=== PATIENT | female | born 1965 | race Caucasian/White ===

== ENCOUNTER 2019-12-09 14:08 | Day surgery (SDC) | payer BC ==
[2019-12-04 13:41] LABS: BASOPHILS % (AUTO) 0.6 % (0-1); EOSINOPHILS # (AUTO) 0.1 X10'3 (0-0.9); EOSINOPHILS % (AUTO) 1.3 % (0-6); LYMPHOCYTES # (AUTO) 1.4 X10'3 (1.1-4.8); LYMPHOCYTES % (AUTO) 28.8 % (21-51); MEAN CORPUSCULAR HEMOGLOBIN 29.3 PG (27.0-31.0); MEAN CORPUSCULAR HGB CONC 33.6 g/dL (33.0-36.5); MEAN CORPUSCULAR VOLUME 87.4 FL (78-98); MONOCYTES # (AUTO) 0.2 X10'3 (0-0.9); NEUTROPHILS # (AUTO) 3.1 X10'3 (1.8-7.7); NEUTROPHILS % (AUTO) 64.3 % (42-75); PRE OP HEMATOCRIT 43.5 % (35.0-45.0); PRE OP HEMOGLOBIN 14.6 g/dL (12.0-16.0); PRE OP PLATELET COUNT 306 X10'3 (140-440); RED BLOOD COUNT 4.98 X10'6 (4.20-5.60)
[2019-12-04 13:48] LABS: CLARITY,URINE CLEAR (Clear); COLOR,URINE STRAW (Yellow); GLUCOSE, URINE NEGATIVE (Neg); KETONES,URINE NEGATIVE (Neg); LEUKOCYTE ESTERASE ,URINE NEGATIVE (Neg); NITRITES, URINE NEGATIVE (Neg); OCCULT BLOOD,URINE MODERATE (Neg); PROTEIN,URINE NEGATIVE (Neg); UA COLLECTION TYPE CLN CATCH MIDSTREAM; UROBILINOGEN,URINE 0.2 E.U/dL (0.2-1.0)
[2019-12-04 13:55] LABS: SQUAMOUS EPITHELIAL CELL,UR FEW /LPF (FEW)
[2019-12-04 13:56] LABS: BACTERIA,URINE FEW /HPF (Neg); WBC,URINE 0-4 /HPF (0-4)
[2019-12-04 13:57] LABS: PRE OP PROTIME 9.9 SECONDS (9.0-12.0)
[2019-12-04 13:59] LABS: ALBUMIN 4.2 G/DL (3.4-5.0); ALBUMIN/GLOBULIN RATIO 1.1 (1.1-1.5); ALKALINE PHOSPHATASE 99 IU/L (46-116); BLOOD UREA NITROGEN 12 MG/DL (7-18); BUN/CREATININE RATIO 15.4 (6.6-38.0); CALCIUM 9.5 MG/DL (8.5-10.1); CHLORIDE 105 MMOL/L (99-107); CREATININE 0.78 MG/DL (0.40-0.90); PRE OP ALT 26 U/L (30-65); PRE OP ANION GAP 5 (8-16); PRE OP AST 19 U/L (10-37); PRE OP BILIRUB, TOTAL 0.4 MG/DL (0.0-1.0); PRE OP GLUCOSE 95 MG/DL (70-104); PRE OP SODIUM 141 MMOL/L (135-145); TOTAL CARBON DIOXIDE 30.9 MMOL/L (24-32); TOTAL PROTEIN 7.9 G/DL (6.4-8.2); eGFR 78 ML/MIN
[~2019-12-09] VITALS: Ht 172.7 cm; Wt 72.3 kg
[2019-12-09] VITALS (22 sets, daily range): BP systolic 91–138; BP diastolic 52–99
[~2019-12-09 14:08] MED LIST: ALPR-624 PO; BUPIVAcaine/PF 2.5 mg/ml (0.25%) 30ml vial ONE; BUPR300T53 PO; CHOL400T14 PO; CYAN100019 PO; CYCL-1 PO; GENTAMICIN IV ONE; LACT1CAP65 PO; LAMO150T2 PO; LIDOcaine 1% 30ml preserv. free vial ONE; LIDOcaine 2% (20mg/ml) 5ml vial ONE; NORMAL SALINE IV ONE; TEST2.5G5 TD; acetaminophen 1,000mg/100ml IV 100 ML IV ONE; ceFAZolin 1000mg inj ONE; clindamycin phosphate 40gm vag cream ONE; clindamycin-Cleocin 900mg/D5W 50 ML IV ONE; dexamethasone sod phosphate 10mg/ml inj ONE; famotidine 20mg tablet PO ONE; fentaNYL /PF 50mcg/ml 5ml ampule ONE; meperidine/PF 25mg/ml syringe IV PRN; midazolam 2 mg/2 ml injection ONE; morphine 10mg/ml inj. ONE; morphine 4 MG/ML inj SYRINge IV PRN; ondansetron/PF 4mg/2ml inj IV PRN; ondansetron/PF 4mg/2ml inj ONE; proCHLORperazine 10 MG/2 ml inj IV PRN; propofol inj 20 ML IV ONE; ringers solution, lacted 1,000 ML IV SCH; rocuronium 10mg/ml inj IV ONE; sevoflurane 250ml liquid IH ONE; vasoPRESSIN 20 units/ml inj. ONE
[2019-12-09] MEDS: ringers solution, lacted 1,000 ML IV SCH ×2 (14:08→21:41)
[2019-12-09] MEDS ORDERED: temazepam 15mg capsule PO PRN (14:10)
[2019-12-09] MEDS ORDERED: bisacodyl 10mg suppository rectal RC PRN (14:10)
[2019-12-09] MEDS ORDERED: diphenhydrAMINE 50 mg/ml inj IV PRN (14:10)
[2019-12-09] MEDS ORDERED: CADD PCA waste documentation MC PRN (14:10)
[2019-12-09] MEDS ORDERED: HYDROcodone/acetaminophen 5mg/325mg tablet PO PRN ×2 (14:10)
[2019-12-09] MEDS ORDERED: normal saline 500ml IV soln 500 ML IV PRN (14:10)
[2019-12-09] MEDS ORDERED: naloxone 0.4 mg/ml inj IV PRN (14:10)
[2019-12-09] MEDS ORDERED: ketorolac trometh. 30mg/ml inj. ONE (14:14)
--- NOTE | 2019-12-09 14:26 | NUR ---
Received from OR via BED, accompanied by Anesthesiologist DR GAUTHIER and report given by Anesthesiologist. PT VERY DROWSY, NO S/S OF DISTRESS/DISCOMFORT, ABDOMEN W/4 LAP SITES W/BANDAIDS, STERI-STRIPS OVER PUBIS INTACT, CALL CATHETER TO GRAVITY DRAINAGE W/FLUORSCEIN BRIGHT YELLOW URINE. Addendum: 12/09/19 at 1512 by Lee Ann Leal RN Amended: Links added.
[2019-12-09] MEDS: meperidine/PF 25mg/ml syringe IV PRN ×2 (15:07→15:18)
[2019-12-09] MEDS: HYDROmorphone/NS 1 mg/ml CADD 50 ML IV SCH ×5 (16:11→23:00)
--- NOTE | 2019-12-09 16:24 | NUR ---
Received report from Lee Ann COLON, awaiting patients arrival on unit
--- NOTE | 2019-12-09 16:26 | NUR ---
Report called to receiving nurse. Transferred via BED, 1 BAG OF PERSONAL Belongings SENT W/PT TO ROOM 350A, BLL, CALL LIGHT GIVEN, SIDE RAILS UP X 2, FAMILY AT BEDSIDE, RECEIVING RN NOTIFIED OF PTS ARRIVAL. Special Issues communicated to receiving nurse. YES. Addendum: 12/09/19 at 1646 by Lee Ann Leal RN Amended: Links added.
[2019-12-09] MEDS ORDERED: ALPRAZolam 0.5mg tablet PO PRN (16:50)
[2019-12-09] MEDS: simethicone 80mg chew tab PO SCH (17:14)
--- NOTE | 2019-12-09 18:30 | NUR ---
Patient in room [facility] 350. I have received report from JASMYNE COLON and had the opportunity to ask questions and assume patient care. Addendum: 12/09/19 at 1936 by Kelsey Clakr RN Amended: Links added.
--- NOTE | 2019-12-09 19:05 | NUR ---
All cares given Dilaudud cadd in place, pain 12/09. lapsites CDI. VSS. parents in room. Report given to sarah COLON
--- NOTE | 2019-12-09 20:31 | NUR ---
Dr Landers called to check on his pt aware she haSNOT WALKED HAS A LOW BP 93/51 ANDF HER VITAL TRENDS HAVE BEEN THERE THAT PT STATES SHE RUNS LOW NORMALLY AND IS SLEEPY RIGHT NOW BUT WILL WALK LATER AND LAP SITES WITHOUT DRAINAGE AND PERIPAD SCANT. NO NEW ORDERS TAKEN.
[2019-12-09] MEDS: buPROPion SR 150mg tablet PO SCH (22:04)
[2019-12-09] MEDS: ondansetron/PF 4mg/2ml inj IV PRN (22:18)
--- NOTE | 2019-12-09 22:28 | NUR ---
pt went to get up after using cadd became nauseated sbp now 113, medicated for the nausea and will come back after pt feels better.
--- NOTE | 2019-12-09 23:16 | NUR ---
POST OP VITALS MONITORED BY rN'S ANDB DOCUMENTED BY ROMMEL AND RN. Addendum: 12/09/19 at 2317 by Kelsey Clark RN Amended: Links added.
[2019-12-10] VITALS: BP 99/68
[2019-12-10] MEDS: ketorolac trometh. 30mg/ml inj. IV PRN ×3 (00:20→14:44)
--- NOTE | 2019-12-10 00:20 | NUR ---
medicated for pain with Toradol
[2019-12-10] MEDS: HYDROmorphone/NS 1 mg/ml CADD 50 ML IV SCH ×4 (01:00→07:00)
--- NOTE | 2019-12-10 01:20 | NUR ---
got pt up edge of bed became nauseated and faint feeling threw 200cc emesis at this time and laid her back down.
--- NOTE | 2019-12-10 01:40 | NUR ---
pt whiffed alcohol swab has Evan on board stated nausea gone pt feels weak. mouth care done cool wash cloths behind back of neck and on the forehead for comfort.
--- NOTE | 2019-12-10 03:00 | NUR ---
went to attempt again to get pt up but pt resting with cloths to forehead.
[2019-12-10 04:00] VITALS: BP 103/63
--- NOTE | 2019-12-10 04:36 | NUR ---
pt resting cloth over her eyes.
--- NOTE | 2019-12-10 04:55 | NUR ---
pt up with assistance sat on edge of bed premedicated with zofran for nausea prevention. pt had pushed the cadd button. pt got up ft then stated she was nauseated. sat in a wheel chair with 250cc bile green emesis. taken back to the room and assisted back to bed.
[2019-12-10] MEDS: ondansetron/PF 4mg/2ml inj IV PRN ×2 (04:56→13:43)
--- NOTE | 2019-12-10 05:20 | NUR ---
pt stated feeling better and wanted packing removed and arredondo. packing removed slowly without difficulty all obtained and then arredondo balloon fully deflated and then removed. teaching done regarding call for assistance to get up and void and pt aware she will be bladder scanned after voiding to check for residuals.
[2019-12-10 05:32] LABS: BASOPHILS % (AUTO) 0.2 % (0-1); EOSINOPHILS % (AUTO) 0 % (0-6); HEMOGLOBIN 12.1 g/dl (12.0-16.0); LYMPHOCYTES # (AUTO) 0.9 X10'3 (1.1-4.8); LYMPHOCYTES % (AUTO) 9.1 % (21-51); MEAN CORPUSCULAR HEMOGLOBIN 30.5 PG (27.0-31.0); MEAN CORPUSCULAR HGB CONC 35.5 g/dL (33.0-36.5); MEAN CORPUSCULAR VOLUME 85.9 FL (78-98); MEAN PLATELET VOLUME 6.7 FL (7.4-10.4); MONOCYTES # (AUTO) 0.7 X10'3 (0-0.9); MONOCYTES % (AUTO) 6.9 % (2-12); NEUTROPHILS # (AUTO) 8.5 X10'3 (1.8-7.7); NEUTROPHILS % (AUTO) 83.8 % (42-75); PLATELET COUNT 228 X10'3 (140-440); RED BLOOD COUNT 3.96 X10'6 (4.20-5.60); RED CELL DISTRIBUTION WIDTH 12.8 % (11.5-14.5); WHITE BLOOD COUNT 10.2 X10'3 (4.5-11.0)
[2019-12-10] MEDS: ringers solution, lacted 1,000 ML IV SCH ×2 (06:18→14:08)
--- NOTE | 2019-12-10 06:20 | NUR ---
Student documentation: I have reviewed and agree with all interventions, assessments performed and documented by Dariela Clark Rn student.s Student Medication Administration: For this medication-pass time frame, all medication were reviewed, dispensed, administered and documented per hospital policy by Dariela clark Rn Student. Addendum: 12/10/19 at 0720 by Kelsey Clark RN Amended: Links added.
--- NOTE | 2019-12-10 06:23 | NUR ---
pt put call light on assisted up to brp voided 75cc of pink urine. bladder scanned noted zero in there.
--- NOTE | 2019-12-10 06:58 | NUR ---
Problems reprioritized. Patient report given, questions answered & plan of care reviewed with Natalie Bee. Addendum: 12/10/19 at 0659 by Kelsey Clark RN Amended: Links added.
--- NOTE | 2019-12-10 07:10 | NUR ---
Patient in room [facility]. I have received report from Kelsey COLON and had the opportunity to ask questions and assume patient care.
[2019-12-10 07:20] VITALS: BP 93/60
[2019-12-10] MEDS: simethicone 80mg chew tab PO SCH ×2 (08:25→13:42)
[2019-12-10] MEDS: buPROPion SR 150mg tablet PO SCH (08:25)
[2019-12-10 12:25] VITALS: BP 109/73
--- NOTE | 2019-12-10 17:46 | NUR ---
Pt d/c'd per Dr Landers. Pt stable condition, tolerating PO fluids well. Boyer cath removed. voiding without complication, residual bladder scan 6ml. Discharge and medication instruction given to patient and family. Pt was escorted on w/c to main lobby. Left the hospital on private vehicle accompanied by family.
== END 2019-12-10 17:30 | disposition home or self-care (01) ==
LOC: PAS 14:08 → SUR 3N 14:08 → PAS 12-10 17:30
PROVIDERS: ATTEND Specialist
DX: N81.4 Uterovaginal prolapse, unspecified (principal); N39.3 Stress incontinence (female) (male); N72 Inflammatory disease of cervix uteri; N80.0 Endometriosis of uterus; D25.9 Leiomyoma of uterus, unspecified; F31.9 Bipolar disorder, unspecified; F41.9 Anxiety disorder, unspecified; G43.909 Migraine, unspecified, not intractable, without status migrainosus; Z87.891 Personal history of nicotine dependence; Z88.0 Allergy status to penicillin; Z79.899 Other long term (current) drug therapy; Z98.890 Other specified postprocedural states; Z72.89 Other problems related to lifestyle; Z79.01 Long term (current) use of anticoagulants; Z83.3 Family history of diabetes mellitus; Z82.49 Family history of ischemic heart disease and other diseases of the circulatory system
CPT/HCPCS: 36415; 57240; 57288; 57425; 58552; 80053; 81001; 82948; 85025; 85610; 85730; 86885; 86900; 86901; C1771; J0131; J0690; J1100; J1170; J1580; J1885; J2001; J2175; J2250; J2270; J2405; J2704; J3010; J3490; J7120; A4215; A4314; A4338; A4355; A4618; A6250; A6258; A7000; G0378